=== PATIENT | female | born 1975 | race Two or more races ===

== ENCOUNTER 2016-04-15 09:06 | Inpatient (IN) | payer MEDICARE, OTHER ==
--- NOTE | ~2016-04-15 | CT2 ---
[facility] A Service of [facility] RADIOLOGY TEXT RESULTS PATIENT: GAGAN IGNACIO LOCATION: [facility] 85229-09 : [birth year] UNIT #: [id number] AGE: [address]: Samanta Coburn MD SEX: F ORDER DR: [id number] [facility] [address] [place], [place] [address] [id number] E MR#: [id number] #: [id number] NAME: GAGAN IGNACIO : 1975 SEX: F STUDY DATE/TIME: 04/15/2016 10:25 UNIT: SADIA ROOM: STUDY DESCRIPTION: CT Abd and Pelv W Cont Attending Physician: Justice Cooney M.D. Ordering Physician: Justice Cooney M.D. Primary Care Physician: Kyle Sheth M.D. MEDICAL IMAGING REPORT This report is preliminary unless electronic signature is present EXAM Abdomen and pelvis CT with contrast, 04/15/2016. INDICATION 41-year-old female complaining of lower abdominal pain, nausea, and vomiting since this morning. Headache since this morning. History of neck surgery, diabetes, and hypertension. TECHNIQUE Contrast-enhanced abdomen and pelvis CT was performed and compared with 03/21/2016. This CT exam was performed with one or more of the following radiation dose reduction techniques: automatic exposure control, adjustment of mA and/or kV according to patient size, and iterative reconstruction. FINDINGS CT ABDOMEN: Included lung bases are clear. There is no effusion or pericardial effusion. Aorta unremarkable. Spleen, adrenal glands, and pancreas are unremarkable along with the gallbladder. There is a subtle nonspecific area of enhancement in the dome of the right hepatic lobe measuring 9 mm. This probably represents a small vascular shunt or other benign lesion such as an area of focal nodular hyperplasia or small flash fill hemangioma. If clinically desired or warranted, definitive characterization could be pursued with multiphase imaging with and without contrast utilizing CT or MRI. Kidneys demonstrate tiny nonobstructing stones bilaterally. No hydronephrosis. CT PELVIS: Bladder unremarkable. There is heterogeneity of the uterus, probably related to the patient's menstrual cycle. No drainable fluid collection in the pelvis. Incidental dominant follicle in the right ovary measures 1.9 cm. Equivocal uterine fibroid to the left of midline STS. [facility] A Service of [facility] RADIOLOGY TEXT RESULTS PATIENT: GAGAN IGNACIO LOCATION: [facility] [address]-35 : [birth year] UNIT #: [id number] AGE: [address]: Samanta Coburn MD SEX: F ORDER DR: measures 2.6 cm. This could be better characterized with nonemergent outpatient ultrasound. No adnexal mass. The appendix is normal. There is a small anterior abdominal wall hernia containing fat and small bowel loops. There is fecalization of intestinal contents and a transition from decompressed small bowel to slightly dilated small bowel in the left midabdomen associated with the hernia along with a small amount of fluid in the adjacent posterior small bowel mesentery. The affected small bowel loops also demonstrate fluid distension. Imaging features are concerning for a partial or incomplete small bowel obstruction. This could less likely represent a localized small bowel enteritis. At this point, there is no pneumatosis or free air. There is evidence of prior hernia repair. Inguinal canals are unremarkable. No suspicious bone lesion. IMPRESSION 1. The patient has imaging features suggestive of an incomplete or partial small bowel obstruction or less likely small bowel enteritis. Mildly dilated small bowel with fecalization of intestinal contents associated with a small anterior abdominal wall hernia as described. At this point, there is no free air or pneumatosis. Most likely etiology is adhesions. 2. There is no drainable fluid collection in the abdomen or pelvis. Large bowel unremarkable. Appendix normal. 3. Probably benign enhancing lesion in the dome of the liver measures 9 mm. See discussion above. 4. Nonobstructing renal stones bilaterally. Dictated by... Ravin Johnson M.D. THIS IS AN ELECTRONICALLY VERIFIED REPORT Ravin Johnson M.D. at 04/15/2016 3:02 PM KONRAD/jagruti TD: 04/15/2016 11:42 JOB #: [id number] MEDICAL IMAGING REPORT COPY
--- NOTE | ~2016-04-15 | EKG ---
PATIENT: GAGAN IGNACIO UNIT #: [id number] Ventricular Rate: 103 BPM Atrial Rate: 103 BPM P-R Interval: 140 ms QRS Duration: 74 ms Q-T Interval: 324 ms QTC Calculation(Bezet): 424 ms P [place]: 61 degrees Calculated R [place]: 53 degrees Calculated T [place]: 61 degrees Diagnosis Line: Sinus tachycardia Diagnosis Line: Otherwise normal ECG Diagnosis Line: When compared with ECG of 24-MAR-2016 14:05, Diagnosis Line: No significant change was found Diagnosis Line: Confirmed by ALEXIA MURPHY MD ([id number]) on Diagnosis Line: 04/15/2016 10:56:46 PM INTERPRETING MD: LEYLA
--- NOTE | ~2016-04-15 | CO ---
Unit #: [id number] #: [id number] Patient: GAGAN IGNACIO [id number] [facility]. [place], [place] [address] [id number] I MR#: [id number] NAME: GAGAN IGNACIO ROOM: [facility] Age: 41 Sex: F Admission Date: 04/15/2016 : 1975 Attending Physician: Samanta Coburn M.D. Primary Care Physician: Kyle Shteh M.D. Consultation Date: 04/20/2016 CONSULTATION REPORT REASON FOR CONSULTATION Leukocytosis and fever. HISTORY OF PRESENT ILLNESS This is a 41-year-old female with history of diabetes, who is admitted to the hospital due to abdominal pain. The patient also had some nausea and vomiting without improvement and there is a concern for a small bowel obstruction. The patient was taken to the operating room where she had exploratory lap and lysis of adhesion. The patient then went back to the OR for a washout on 04/17/2016. It appears that she may have had some post respiratory failure, fever and leukocytosis but she is now on nasal cannula. Her fever has improved but she still complains of some abdominal pain. The patient was noted to have some leukocytosis yesterday as well and ID was asked to evaluate. PAST MEDICAL HISTORY Diabetes, chronic back pain, neck pain and migraines. PAST SURGICAL HISTORY Spine surgery x2, abdominal surgeries in the past. SOCIAL HISTORY The patient is originally from [place]. She lives with her family. She has no alcohol or tobacco abuse or drug use. ALLERGIES No known allergies. MEDICATIONS The patient has recently been changed to Zosyn. Mycamine and Flagyl were added last evening by myself. For other medications, please refer to patient's MAR. REVIEW OF SYSTEMS She denies any fevers. She reports feeling cold but no chills or sweats. She denies any heart palpitations. She does report some mild shortness of breath and she is on two liters of oxygen. She reports abdominal discomfort but passing gas. She denies any nonhealing wound. PHYSICAL EXAMINATION GENERAL APPEARANCE: This is a no apparent distress female who is resting in bed comfortably on three liters of oxygen. VITAL SIGNS: Temperature 98.1 with a T-max of 102.5 on April 17 at 8 p.m. Pulse 98. Blood pressure 127/82. Respiratory rate 18. Unit #: [id number] #: [id number] Patient: GAGAN IGNACIO HEENT: Her pupils are equal. NECK: Supple. CARDIOVASCULAR: S1, S2 with tachycardia. PULMONARY: Clear to auscultation bilaterally with no wheezes or rhonchi noted. ABDOMEN: Decreased bowel sounds. Incision with marcelina are in place with no drainage or erythema. EXTREMITIES: PICC line is in place in the upper arm. No evidence of erythema. DIAGNOSTIC STUDIES LABORATORY: BUN 10, creatinine 0.4, sodium 138, potassium 2.8, chloride 109, CO2 20, bilirubin 0.7, AST 10, ALT 10. CK total 24. Lactic acid 0.7. WBC count 13.6 and yesterday was 18.7, hemoglobin 11.4, hematocrit 35.5, platelets 451. Urinalysis is unremarkable. Microbiology data reveals negative blood cultures from both the and urine culture was negative as well. IMAGING: CT scan of the abdomen on the reveals exploratory lap postoperative changes with some stranding noted in the omentum where prior mesh was suspected of postoperative changes. Infection not excluded. There is no drainable fluid collection. There is no mechanical bowel obstruction, nonobstructing renal stones, bibasilar atelectasis. Hepatic steatosis. Last chest film showed minimal infiltrate or atelectasis. IMPRESSION This is a 41-year-old female status post exploratory lap with lysis of adhesions with re-op surgery with washout. Patient now with initial fever and leukocytosis suspected to be related to multiple OR procedures. CT scan is noted and there is no fluid collection found and most operatively a postoperative finding. Blood cultures are negative. There are no signs of suspicion of pneumonia or UTI at this time. At this time, we will continue Mycamine, Flagyl and Zosyn. We will follow the patient's WBC count and fever and may be able to deescalate antibiotics in the next 24 to 48 hours depending on patient progress. We will check a CBC in the a.m. and have the nursing staff call with any positive blood cultures. Thank you for allowing us to participate in the care of this patient. Further recommendations to follow depending the patient's clinical course. Dictated by... Timbo Canales.P.R.N. Teri Zaldivar TD: 04/20/2016 16:22 JOB #: [id number] CONSULTATION REPORT X X CONSULTATION REPORT
--- NOTE | ~2016-04-15 | CT71 ---
[facility] A Service of [facility] RADIOLOGY TEXT RESULTS PATIENT: GAGAN GINACIO LOCATION: [facility]ICCU2 CICCU2-08 : [birth year] UNIT #: [id number] AGE: [address]: Samanta Coburn MD SEX: F ORDER DR: [id number] [facility] [address] [facility]. [place], [place] [address] [id number] E MR#: [id number] Acc #: [id number] NAME: GAGAN IGNACIO : 1975 SEX: F STUDY DATE/TIME: 04/15/2016 10:23 UNIT: SADIA ROOM: STUDY DESCRIPTION: CT Head Wo Contrast Attending Physician: Justice Cooney M.D. Ordering Physician: Justice Cooney M.D. Primary Care Physician: Kyle Sheth M.D. MEDICAL IMAGING REPORT This report is preliminary unless electronic signature is present EXAM CT head without contrast 04/15/2016 HISTORY 41-year-old female with headache beginning this morning. COMPARISON None. TECHNIQUE Routine unenhanced axial images performed through the brain. FINDINGS No hemorrhage, acute infarction, mass lesion, or abnormal extraaxial fluid collection. No midline shift or focal mass effect. Ventricular system is normal in size and configuration. No acute bony abnormality. Partially imaged mucous retention cyst in the left maxillary sinus. Mild mucosal thickening left sphenoid sinus. Visualized mastoid air cells are clear. IMPRESSION 1. No acute intracranial abnormality. 2. Partially imaged mucous retention cyst in the left maxillary sinus. Minimal mucosal thickening left sphenoid sinus. Dictated by... Wayne Carmichael M.D. THIS IS AN ELECTRONICALLY VERIFIED REPORT Wayne Carmichael M.D. at 04/16/2016 4:43 PM HIGINIO/zak TD: 04/15/2016 11:22 JOB #: [id number] [facility] A Service of [facility] RADIOLOGY TEXT RESULTS PATIENT: GAGAN IGNACIO LOCATION: [address] : [birth year] UNIT #: [id number] AGE: [address]: Samanta Coburn MD SEX: F ORDER DR: MEDICAL IMAGING REPORT COPY
--- NOTE | ~2016-04-15 | CO ---
Unit #: [id number] #: [id number] Patient: GAGAN IGNACIO [id number] [place], [place] [address] [id number] I MR#: [id number] NAME: GAGAN IGNACIO ROOM: [facility] Age: 41 Sex: F Admission Date: 04/15/2016 : 1975 Attending Physician: Samanta Coburn M.D. Primary Care Physician: Kyle Sheth M.D. Consultation Date: 04/16/2016 CONSULTATION REPORT REASON FOR CONSULT ICU management. HISTORY OF PRESENT ILLNESS The patient is a very pleasant, 41-year-old female with past medical history significant for back pain, diabetes, migraine, who was admitted two days ago to the hospital with abdominal pain and her CT abdomen was consistent with small bowel obstruction with ventral incisional hernia. Patient underwent laparoscopy with ventral hernia repair and release of her small bowel obstruction. The patient was recovering on the floor where she was suddenly noted to be in respiratory distress with heart rate of 140 and low blood pressure. The patient stated that she was having chest pain mainly on inspiration with shortness of breath. Patient never smoked. She is not on oxygen at home. She has never been worked up for sleep apnea. PAST MEDICAL HISTORY 1. Migraine. 2. Diabetes type 2. 3. Chronic back pain. PAST SURGICAL HISTORY 1. Spine surgery. 2. Multiple abdominal surgeries. 3. Exploratory laparotomy. SOCIAL HISTORY Patient is and she lives with her family. No history of alcohol or drug abuse or smoking. FAMILY HISTORY Diabetes. ALLERGIES No known drug allergy. HOME MEDICATION 1. Invokana. 2. Neurontin. 3. Oxycodone. Unit #: [id number] #: [id number] Patient: GAGAN IGNACIO 4. Baclofen. 5. Imitrex. REVIEW OF SYSTEMS A 12-point review of systems was obtained and was negative except for what was mentioned in the HPI. PHYSICAL EXAMINATION GENERAL: The patient is not in acute distress. HEENT: Atraumatic, normocephalic, PERRLA, EOMI. CHEST: Decreased breath sounds bilaterally with fine rhonchi at the right bottom lung. HEART: Sinus tachycardia but no murmur, gallops or rubs. ABDOMEN: Soft. Tender to deep palpation. Bowel sounds weak. SKIN: No rashes. EXTREMITIES: No edema. APPLIED EXERCISE PHYSIOLOGIST: Awake, alert, oriented x3. No focal motor/sensory deficit. DIAGNOSTIC STUDIES LABORATORY: Lactic acid is 1, white blood count 16.9, hemoglobin 11.0. IMAGING: Tests are pending. ASSESSMENT 1. Acute hypoxic respiratory failure. 2. Sinus tachycardia. 3. Morbid obesity. 4. Rule out obstructive sleep apnea. 5. Small bowel obstruction. 6. Diabetes. PLAN 1. Patient is critical and she will be watched in the ICU very closely. 2. CT angiogram to rule out pulmonary embolus is needed in the light of hypoxia, tachycardia, chest pain and other risk factors. 3. Antibiotics were started by primary which will continue and reassess. 4. Continue IV fluid. 5. Sleep study as an outpatient. Dictated by... Tawana Gutierrez M.D. EA/marsha TD: 04/16/2016 20:47 JOB #: [id number] Unit #: [id number] #: [id number] Patient: GAGAN IGNACIO CONSULTATION REPORT X TAWANA KEEN MD X CONSULTATION REPORT
--- NOTE | ~2016-04-15 | DS ---
Unit #: [id number] #: [id number] Patient: GAGAN IGNACIO [id number] [address] [address] [id number] I MR#: [id number] NAME: GAGAN IGNACIO ROOM: 55 Age: 41 Sex: F Admission Date: 04/15/2016 : 1975 Discharge Date: 04/23/2016 Attending Physician: Samanta Coburn M.D. Primary Care Physician: Kyle Sheth M.D. DISCHARGE SUMMARY FINAL DIAGNOSES 1. Abdominal pain secondary to adhesions and abdominal wall hematoma status post first surgery performed by Dr. Granados on 04/15/16. Patient had diagnostic laparoscopy and extensive adhesiolysis done. The second procedure was performed on 04/17/2016 because there was a question of perforated viscus, but postoperative diagnosis was abdominal wall hematoma. Exploratory laparotomy was done, repair of incidental enterotomy of small bowel was done and washout of pneumoperitoneum. 2. Nausea and vomiting, which is resolved. 3. Leukocytosis, resolved. 4. Hyponatremia, resolved. 5. Acute hypoxic respiratory failure, resolved. 6. Sinus tachycardia, improved. 7. Diabetes mellitus type 2. 8. History of chronic back pain and neck pain. 9. History of migraine. DISCHARGE MEDICATIONS 1. Tylenol 325 mg q.4 p.r.n. 2. Januvia 100 mg daily. 3. Diflucan 200 mg p.o. daily. This will be as per ID. 4. Lopressor 25 mg q.6 hours. 5. Colace 100 mg b.i.d. 6. MiraLAX 17 grams b.i.d. 7. Metronidazole 500 mg p.o. q.8 until 04/29/2016. 8. Oxycodone continue home dose. 9. Omeprazole 40 mg daily. 10. Invokana continue home dose. 11. Augmentin 875 mg p.o. b.i.d. until 04/29/16. DIAGNOSTIC STUDIES LAB WORKUP ON DISCHARGE: Sodium 140, potassium 3.5, chloride 102, bicarb 30, BUN 6, creatinine 0.4. WBC 11.1, hemoglobin 11.2, hematocrit 34.7, platelet count 500. CONSULTATIONS DONE DURING HOSPITALIZATION 1. Dr. Burkett and Dr. Granados from [facility]. 2. Dr. Gutierrez from pulmonary services. 3. Dr. Meza from infectious disease. HOSPITAL COURSE Ms. Gagan Ignacio is a 41-year-old female who was admitted to the hospital with abdominal pain, nausea and vomiting. Dr. Burkett was Unit #: [id number] #: [id number] Patient: GAGAN IGNACIO consulted. There was a question of abdominal hernia. Dr. Granados performed surgery, and extensive adhesiolysis was done. Postsurgery the patient became very tachycardic and hypoxic. The patient was transferred to ICU. Repeat procedure was performed by Dr. Granados, and repair of incidental enterotomy of the small bowel was done. The patient is doing much better at this time, will be discharged home tomorrow morning after okay with [facility]. DISCHARGE INSTRUCTIONS 1. Caretenders to evaluate and treat, wound care and PT/OT. 2. Medications as per med/rec. 3. Follow up with primary care provider in 1 week. 4. CBC, BMP in 1 week. 5. Staple removal will be by Dr. Granados. Dictated by... Teri Talley/tha TD: 04/23/2016 13:38 JOB #: [id number] DISCHARGE SUMMARY X Samanta Coburn MD X DISCHARGE SUMMARY
--- NOTE | ~2016-04-15 | BMI ---
[facility] Nutrition Therapy DATE: 04/16/16 Patient: GAGAN IGNACIO Physician: VENKAT Address: [address] Room/Bed: [address] [place] [address], Zip: [place] [address] Admit Date: 04/15/16 Date of : [birth year] Height: 5 1 Weight: 231 105 HIGH BMI NOTE: DX: ABDOMINAL PAIN, NAUSEA, VOMITING ANTHROPOMETRICS: HT: 5'1", WT: 231# (105KG), BMI: 43.6 DIET: NPO RECOMMENDATIONS: ONCE DIET ADVANCEMENT IS MEDICALLY FEASIBLE, RECOMMEND A CC, HEART HEALTHY DIET TO PROMOTE A STEADY WEIGHT LOSS TOWARDS A HEALTY BMI OF 19-25 AND NORMAL GLUCOSE LEVELS. Respectfully, RASHEED REAVES, ARLET, LD [facility] cc: client file
--- NOTE | ~2016-04-15 | CR72 ---
[facility] A Service of [facility] RADIOLOGY TEXT RESULTS PATIENT: GAGAN IGNACIO LOCATION: [address] [id number] : [birth year] UNIT #: [id number] AGE: [address]: Samanta Coburn MD SEX: F ORDER DR: [id number] [facility] [address] [facility]. [place], [place] [address] [id number] I MR#: [id number] Acc #: [id number] NAME: GAGAN IGNACIO : 1975 SEX: F STUDY DATE/TIME: 04/18/2016 8:14 UNIT: [facility] ROOM: [facility] STUDY DESCRIPTION: CR Chest Single View Portable Attending Physician: Samanta Coburn M.D. Ordering Physician: Louise Garcia M.D. Primary Care Physician: Kyle Sheth M.D. MEDICAL IMAGING REPORT This report is preliminary unless electronic signature is present EXAM Portable chest INDICATION 41-year-old female with shortness of breath for 4 days. COMPARISON 04/17/2016 FINDINGS Mild improvement in bilateral interstitial opacities. Heart size stable. Stable NG tube. IMPRESSION Mild improvement in bilateral interstitial opacity. Dictated by... Richard Shields M.D. THIS IS AN ELECTRONICALLY VERIFIED REPORT Richard Shields M.D. at 04/18/2016 4:14 PM ASHLYN/jose luis TD: 04/18/2016 10:23 JOB #: [id number] MEDICAL IMAGING REPORT COPY
--- NOTE | ~2016-04-15 | CT16 ---
[facility] A Service of [facility] [place] RADIOLOGY TEXT RESULTS PATIENT: GAGAN INGACIO LOCATION: [facility] 552- : [birth year] UNIT #: [id number] AGE: [address]: Samanta Coburn MD SEX: F ORDER DR: [id number] [facility] [address] [facility] [place] [facility]. [place], [place] [address] [id number] I MR#: [id number] #: [id number] NAME: GAGAN IGNACIO : 1975 SEX: F STUDY DATE/TIME: 04/16/2016 20:18 [facility] RO[facility]: [facility] STUDY DESCRIPTION: CT Angio Chest for PE Attending Physician: Samanta Coburn M.D. Ordering Physician: Physician Non-Staff Primary Care Physician: Kyle Sheth M.D. MEDICAL IMAGING REPORT This report is preliminary unless electronic signature is present EXAM CT chest with IV contrast, PE protocol, 04/16/2016 COMPARISON March 21, 2016 INDICATIONS 41-year-old female with tachycardia, dyspnea and hypoxia today after abdominal surgery yesterday. TECHNIQUE Axial CT imaging of the chest was performed after administration of 80 mL Isovue-370 intravenously. Coronal MIPs as sagittal reformats were constructed. This CT exam was performed with one or more of the following radiation dose reduction techniques: automatic exposure control, adjustment of mA and/or kV according to patient size, and iterative reconstruction. FINDINGS Ehs Engineer topogram demonstrates gaseous distension of small bowel and colon, favoring a postoperative ileus. Subcutaneous gas is seen along the anterior abdominal wall bilaterally in the upper abdomen and along the right inferolateral chest wall/upper abdominal wall. Layering hyperdense material is seen within the gallbladder lumen, possibly reflecting vicarious excretion of contrast from CT abdomen and pelvis performed April 15, 2016. Trace amount of free air is seen anterior to the liver and in the left upper quadrant of the abdomen non dependently, likely an expected postoperative finding. There is a small amount of free fluid in the left upper quadrant of the abdomen, also likely an expected postoperative finding. There is a very small low-density lesion in the superior pole of the right kidney most in keeping with a benign cyst, measuring up to 5 mm. This has internal Hounsfield units of 13 on STS. [facility] A Service of [facility] [place] RADIOLOGY TEXT RESULTS PATIENT: GAGAN IGNACIO LOCATION: [facility]5 552-01 : [birth year] UNIT #: [id number] AGE: [address]: Samanta Coburn MD SEX: F ORDER DR: carey. Benign bone island in the left humeral head. Bridging anterior osteophytes of multiple levels of the thoracic spine suggestive of DISH. Anterior cervical fusion hardware as well as posterior cervical fusion hardware is noted, only seen in entirety on autocad topogram and not well evaluated. There are low lung volumes with enhancing wedge-shaped attenuation in both dependent lower lobes most consistent with atelectasis. There is top normal heart size. No pericardial effusion. When allowing for motion artifact the main pulmonary artery is likely normal caliber but appears prominent. Evaluation for pulmonary embolus is limited by phase of postcontrast imaging. There is no evidence of central pulmonary embolus and no definite peripheral pulmonary embolus is seen although again, evaluation is limited. Detailed evaluation of the lungs is limited by motion artifact. No pneumothorax or pleural effusion. IMPRESSION 1. Evaluation for pulmonary embolus is significantly limited by phase postcontrast imaging. Although there is no central pulmonary embolus more peripheral pulmonary embolus cannot entirely be excluded. Clinical correlation is recommended. If high persistent concern one could consider VQ scan. There is no evidence of right-sided heart strain. 2. Wedge-shaped dependent enhancing attenuation in both lower lobes consistent with atelectasis. No convincing evidence of pulmonary infarct or pneumonia. No pleural effusion. 3. Small to moderate amount of subcutaneous gas overlying the upper anterior abdominal wall and right lower lateral chest wall. 4. There is also trace amount free fluid in the left upper quadrant the abdomen with a small amount of pneumoperitoneum seen superiorly, likely expected postoperative findings. No evidence of associated abscess. 5. Tiny benign cyst of the right kidney. Dictated by... Tom Hull M.D. THIS IS AN ELECTRONICALLY VERIFIED REPORT Tom Hlul M.D. at 04/22/2016 5:43 PM IVONNE/matiled TD: 04/17/2016 00:47 JOB #: [id number] MEDICAL IMAGING REPORT COPY
--- NOTE | ~2016-04-15 | CO ---
Unit #: [id number] #: [id number] Patient: GAGAN IGNACIO [id number] [address] [address] [id number] I MR#: [id number] NAME: GAGAN IGNACIO ROOM: 228 Age: 41 Sex: F Admission Date: 04/15/2016 : 1975 Attending Physician: Samanta Cobunr M.D. Primary Care Physician: Kyle Sheth M.D. Consultation Date: 04/15/2016 CONSULTATION REPORT REASON FOR CONSULTATION 1. Small-bowel obstruction. 2. Recurrent ventral incisional hernia. Thank you very much for asking us to see Ms. Ignacio. HISTORY OF PRESENT ILLNESS She is a 41-year-old female. Her past surgical history is remarkable for multiple repairs of a ventral incisional hernia in the periumbilical area. One has been laparoscopic, but her most recent one was done open at [facility] by Dr. Uribe. She was doing well until yesterday when she developed abdominal pain in the area of her umbilicus as well as nausea and vomiting. She vomited 3 times. There was no hematemesis. Her last bowel movement was yesterday. She had no GI bleeding. No or pulmonary symptoms. Up to this point, her weight has been stable and her appetite has been good. She came to the emergency room for evaluation and on CT scan was found to have a what appeared to be a small bowel obstruction and recurrent ventral hernia. She presents at this time for further evaluation and treatment. PAST MEDICAL HISTORY Chronic back pain, chronic neck pain, diabetes, and migraine. PAST SURGICAL HISTORY History of spine surgery x2 and history of multiple ventral hernia repairs. SOCIAL HISTORY No tobacco or alcohol use. FAMILY HISTORY Positive for diabetes. ALLERGIES No known medical allergies. MEDICATIONS Invokana, Neurontin, oxycodone, baclofen, and Imitrex. REVIEW OF SYSTEMS Negative except for above. IMMUNIZATION STATUS Unknown. PHYSICAL EXAMINATION Unit #: [id number] #: [id number] Patient: GAGAN IGNACIO GENERAL: Well-developed, well-nourished female, in no apparent distress. VITAL SIGNS: Afebrile. Vital signs stable. NECK: Supple. No thyromegaly or adenopathy. BACK: No CVA or spinous tenderness. ABDOMEN: Soft, nondistended, tender in the area just above the umbilicus. There is a palpable hernia present, which appears to be incarcerated. There is no erythema or induration. The patient has no rebound or peritoneal signs. No masses palpable other than the hernia. EXTREMITIES: No calf tenderness. DIAGNOSTIC STUDIES LABORATORY RESULTS: White count is 11.9, hemoglobin 14.4, hematocrit 45.1. Her CMP was normal except for a glucose of 200. Urinalysis was negative nitrites, negative leukocyte esterase. IMAGING STUDIES: CT scan of the head without contrast was performed due to her headache with no intracranial abnormalities. CT scan of the abdomen and pelvis showed an incomplete or partial small bowel obstruction with an anterior abdominal wall hernia. IMPRESSION A 41-year-old female with a recurrent ventral incisional hernia. There was a loop of bowel present with fecalization. We feel that the patient on palpation is tender in the area of the hernia. We feel the patient should undergo diagnostic laparoscopy and possible laparoscopic ventral hernia repair with release of small bowel obstruction, possible exploratory laparotomy with open repair. All the risks and benefits of the procedure have been fully explained to the patient in detail including the risk of bleeding, infection, open procedure, recurrence, additional surgery, and other risks. She understands completely and requests we proceed. Dr. Granados will be performing the procedure as he has significant expertise in this type of procedure. All this has been fully discussed with Dr. Granados and a CT scan has been reviewed. He will evaluate the patient all as well. Dictated by... Teri Hong/viv TD: 04/15/2016 22:32 JOB #: [id number] [facility] CONSULTATION REPORT X Dante Burkett MD X CONSULTATION REPORT
--- NOTE | ~2016-04-15 | CR71 ---
[facility] A Service of [facility] RADIOLOGY TEXT RESULTS PATIENT: GAGAN IGNACIO LOCATION: [address] : [birth year] UNIT #: [id number] AGE: [address]: Samanta Coburn MD SEX: F ORDER DR: [id number] [facility] [address] [facility]. [place], [place] [address] [id number] I MR#: [id number] Acc #: [id number] NAME: GAGAN IGNACIO : 1975 SEX: F STUDY DATE/TIME: 04/17/2016 11:14 UNIT: [facility] ROOM: [facility] STUDY DESCRIPTION: CR Chest Single View Attending Physician: Samanta Coburn M.D. Ordering Physician: Aaron Granados M.D. Primary Care Physician: Kyle Sheth M.D. MEDICAL IMAGING REPORT This report is preliminary unless electronic signature is present EXAM Chest, portable 04/17/2016 11:14 hours HISTORY Patient complains of shortness of air postop exploratory laparotomy. History of hypertension, diabetes. COMPARISON Chest x-ray 04/16/2016. FINDINGS Portable upright chest demonstrates low lung volumes. There is a nasogastric tube with tip directed inferiorly in the midline epigastrium likely in the mid body of the stomach. The lung volumes are low with persistent right basilar atelectasis and perihilar vascular crowding. Given these low lung volumes it is difficult to exclude edema but I would favor that no edema is present. There is no pleural effusion. No definite free air is seen in the abdomen. IMPRESSION 1. Low lung volumes film with bibasilar densities likely atelectasis. Given the low lung volumes it is difficult to exclude edema but edema is not favored. There is no pleural effusion or pneumothorax. 2. New nasogastric tube tip is directed directly inferiorly in the epigastrium likely in the mid body of the stomach. No definite residual free air is seen in the abdomen. Dictated by... Patricia Manuel M.D. [facility] A Service of [facility] RADIOLOGY TEXT RESULTS PATIENT: GAGAN IGNACIO LOCATION: [address] : [birth year] UNIT #: [id number] AGE: [address]: Samanta Coburn MD SEX: F ORDER DR: THIS IS AN ELECTRONICALLY VERIFIED REPORT Patricia Manuel M.D. at 04/17/2016 2:33 PM LOS/donato TD: 04/17/2016 13:41 JOB #: [id number] MEDICAL IMAGING REPORT COPY
--- NOTE | ~2016-04-15 | OR ---
Unit #: [id number] #: [id number] Patient: GAGAN IGNACIO [id number] [address] [place], [place] [address] [id number] [place] MR#: [id number] NAME: GAGAN IGNACIO ROOM: [facility] Date of Procedure: 04/17/2016 Admission Date: 04/15/2016 Surgeon: Aaron Granados M.D. : 1975 Attending Physician: Samanta Coburn M.D. Primary Care Physician: Kyle Sheth M.D. OPERATIVE REPORT PREOPERATIVE DIAGNOSIS Possible perforated viscus. POSTOPERATIVE DIAGNOSIS Abdominal wall hematoma. PROCEDURES PERFORMED 1. Exploratory laparotomy. 2. Repair of incidental enterotomy of small bowel. 3. Washout of pneumoperitoneum. ANESTHESIA General endotracheal anesthesia. ESTIMATED BLOOD LOSS Minimal. IV FLUIDS 1.5 L crystalloid and 1 unit of packed red blood cells. INDICATIONS FOR PROCEDURE The patient is a 41-year-old lady, who is status post laparoscopic adhesiolysis secondary to what was thought to be a hernia and small-bowel obstruction. She presents with persistent tachycardia and intermittent bouts of hypotension with abdominal pain. Despite normal lactic acid, it was felt that the possibility of perforated bowel is entertained. I discussed in detail with the patient. She presents for exploratory laparotomy. DESCRIPTION OF PROCEDURE The patient was taken to the operating theater and placed in a supine position. General anesthesia was induced. She was prepped and draped. A midline incision was then made in the abdominal cavity. I entered through the mesh. Upon cutting the mesh with scissors, I did make 0.5 cm enterotomy. This was immediately identified and repaired with 2-0 silk sutures. I then explored the abdomen and found no evidence of a perforated viscus. There was old blood clot. This was all irrigated and washed out. I then ran the small bowel from the duodenal distal. I broke up any adhesions and did not see any area of small bowel obstruction. I did not see any evidence of perforation. NG tube was then placed and its position confirmed. I then irrigated with 4 L of normal saline. I placed the bowel back in anatomical position and then closed with interrupted Unit #: [id number] #: [id number] Patient: IGNACIO,GAGAN Prolene, which accomplished of mesh to mesh closure. I did not see any contamination. Therefore, I removed no mesh. I then closed the skin with marcelina. The patient tolerated the procedure well and sent to the recovery room in good condition. Dictated by... Teri Oseguera/viv TD: 04/18/2016 02:57 JOB #: [id number] OPERATIVE REPORT X Aaron Granados MD X PROCEDURE OPERATIVE NOTE
--- NOTE | ~2016-04-15 | CR72 ---
[facility] A Service of [facility] RADIOLOGY TEXT RESULTS PATIENT: GAGAN IGNACIO LOCATION: [place] [address] : [birth year] UNIT #: [id number] AGE: [address]: Samanta Coburn MD SEX: F ORDER DR: [id number] [facility] [address] [facility]. [place], [place] [address] [id number] I MR#: [id number] Acc #: [id number] NAME: GAGAN IGNACIO : 1975 SEX: F STUDY DATE/TIME: 04/19/2016 8:29 UNIT: [facility] ROOM: [facility] STUDY DESCRIPTION: CR Chest Single View Portable Attending Physician: Samanta Coburn M.D. Ordering Physician: Chris Gutierrez M.D. Primary Care Physician: Kyle Sheth M.D. MEDICAL IMAGING REPORT This report is preliminary unless electronic signature is present EXAM Portable chest 04/19/2016 at 04:07. INDICATIONS Pneumonia, chest pain, fever for the last 4 days. TECHNIQUE AP portable chest. COMPARISON Compared with 04/18/2016. FINDINGS Cardiomegaly is stable. Minimal residual infiltrate or atelectasis noted in both bases. There may be trace amount of pleural fluid on both sides of the chest. No pneumothorax. NG tube in the stomach. Dictated by... Oscar Burt Jr., M.D. THIS IS AN ELECTRONICALLY VERIFIED REPORT Oscar Burt Jr., M.D. at 04/22/2016 7:21 AM HEATHER/ilir TD: 04/19/2016 08:41 JOB #: [id number] MEDICAL IMAGING REPORT COPY
--- NOTE | ~2016-04-15 | EKG ---
PATIENT: GAGAN IGNACIO UNIT #: [id number] Ventricular Rate: 128 BPM Atrial Rate: 128 BPM P-R Interval: 144 ms QRS Duration: 82 ms Q-T Interval: 288 ms QTC Calculation(Bezet): 420 ms P [place]: 60 degrees Calculated R [place]: 39 degrees Calculated T [place]: 5 degrees Diagnosis Line: Sinus tachycardia Diagnosis Line: Otherwise normal ECG Diagnosis Line: When compared with ECG of 16-APR-2016 14:56, Diagnosis Line: (unconfirmed) Diagnosis Line: Minimal criteria for Inferior infarct are no Diagnosis Line: longer Present Diagnosis Line: Confirmed by RAFFY MCDONALD MD ([id number]) on 04/17/2016 Diagnosis Line: 6:26:02 PM INTERPRETING MD: TAMARA CHRIS
--- NOTE | ~2016-04-15 | HP ---
Unit #: [id number] #: [id number] Patient: GAGAN DEE [id number] [address] [place], [place] [address] [id number] I MR#: [id number] NAME: GAGAN DEE ROOM: 65939 Age: 41 Sex: F Admission Date: 04/15/2016 : 1975 Attending Physician: Samanta Coburn M.D. Primary Care Physician: Kyle Sheth M.D. HISTORY AND PHYSICAL CHIEF COMPLAINT Nausea, vomiting and abdominal pain. HISTORY OF PRESENTING ILLNESS Ms. Dee is a 41-year-old female who has a history of chronic back pain, chronic neck pains, diabetes mellitus type 2, chronic migraine. The patient was admitted last month for same kind of issues. She was seen by set up inspector on the last admission for tachycardia. Workup was negative. The patient's acute coronary syndrome was ruled out. The patient came back this time because of abdominal pain. According to patient, until yesterday, she was doing okay and then suddenly she started having abdominal pain. She started having nausea and vomited three times. Abdominal pain was not getting better so she came to ER and is being admitted for possible small bowel obstruction. The patient is still very nauseous, still having abdominal pain. No complaint of chest pain. No complaint of palpitations. No shortness of breath. She does not have any dizziness or syncopal episode. She is complaining of headache but then she has a history of chronic migraine and chronic back pain. She does not think she had any fever but she has been complaining of chills. Blood cultures were done last time which were negative. Urinalysis has been done in ER which shows hematuria almost likely secondary to (1) . PAST MEDICAL HISTORY 1. Chronic back pain. 2. Chronic neck pain. 3. Diabetes mellitus type 2. 4. History of migraine. PAST SURGICAL HISTORY 1. History of spine surgeries x2. 2. History of abdominal surgeries in [facility]. SOCIAL HISTORY The patient is originally from [place]. She lives with her son. No history of smoking, alcohol or drug abuse. FAMILY HISTORY Negative for coronary artery disease. Family history is positive for diabetes. ALLERGIES No known drug allergies. Unit #: [id number] #: [id number] Patient: GAGAN DEE HOME MEDICATIONS 1. Invokana. 2. Neurontin. 3. Oxycodone. 4. Baclofen. 5. Imitrex. REVIEW OF SYSTEMS As per history of presenting illness. PHYSICAL EXAMINATION GENERAL APPEARANCE: The patient is lying in bed, seems to be in mild distress secondary to pain. No respiratory distress. VITAL SIGNS: Blood pressure 113/79. Respiratory rate 20. Pulse 82. Temperature 98.1. Oxygen saturation 97%. HEENT: Head is normocephalic. Eye movements are normal. NECK: Supple. CHEST: Fair air entry. No additional sounds. CARDIOVASCULAR: S1, S2 positive. Regular rhythm. Tachycardia. ABDOMEN: Tender, generalized, all over. Bowel sounds are positive in the abdomen all over all the quadrants. EXTREMITIES: Negative edema. CENTRAL NERVOUS SYSTEM: Awake, alert, oriented x3. No focal neurological deficit. DIAGNOSTIC STUDIES LABORATORY: WBC 11.9, hemoglobin 14.4, hematocrit 45.1, platelet count 502. Troponin less than 0.05. Sodium 132, potassium 3.9, chloride 102, BUN 10, creatinine 0.4. Liver enzymes are stable. Lipase 19. Urinalysis shows hematuria. ABG is stable. IMAGING: CT scan of the head without contrast was done because of headache. No acute intracranial abnormalities. CT scan of the abdomen and pelvis was done which was suggestive of incomplete or partial small bowel obstruction and possible anterior abdominal wall hernia. ASSESSMENT The patient is being admitted to the med/surg unit with: 1. Abdominal pain. 2. Nausea and vomiting. 3. Possible partial small bowel obstruction. 4. Small abdominal hernia. 5. Leukocytosis. 6. Hyponatremia. 7. Diabetes mellitus type 2. 8. Headache with a history of chronic migraine. 9. Chronic back pain and chronic neck pain. PLAN Admit to med/surg. LSA has been consulted. IV fluids are being started. IV Protonix 40 mg daily is being started. Home medications have been reviewed. The patient is made n.p.o. at this time. IV Zofran p.r.n. for vomiting and IV Toradol p.r.n. for pain. Accu-Chek q.a.c. and h.s. with insulin sliding scale is being started. SCDs bilateral. Plan of care has been discussed with patient and patient's son at length. Dictated by Unit #: [id number] #: [id number] Patient: GAGAN DEE M.D. KN/bd TD: 04/15/2016 13:33 JOB #: [id number] HISTORY AND PHYSICAL X Samanta Coburn MD X HISTORY AND PHYSICAL
--- NOTE | ~2016-04-15 | EKG ---
PATIENT: GAGAN IGNACIO UNIT #: [id number] Ventricular Rate: 147 BPM Atrial Rate: 147 BPM P-R Interval: 140 ms QRS Duration: 72 ms Q-T Interval: 240 ms QTC Calculation(Bezet): 375 ms P [place]: 68 degrees Calculated R [place]: 52 degrees Calculated T [place]: 40 degrees Diagnosis Line: Sinus tachycardia Diagnosis Line: Nonspecific T wave abnormality Diagnosis Line: Abnormal ECG Diagnosis Line: When compared with ECG of 15-APR-2016 09:07, Diagnosis Line: Nonspecific T wave abnormality now evident in Diagnosis Line: Inferior leads Diagnosis Line: Nonspecific T wave abnormality now evident in Diagnosis Line: Anterolateral leads Diagnosis Line: Confirmed by RAFFY MCDONALD MD ([id number]) on 04/17/2016 Diagnosis Line: 6:05:06 PM INTERPRETING MD: TAMARA CHRIS
--- NOTE | ~2016-04-15 | CT4 ---
[facility] A Service of [facility] RADIOLOGY TEXT RESULTS PATIENT: GAGAN IGNACIO LOCATION: [facility] 552-01 : [birth year] UNIT #: [id number] AGE: [address]: Samanta Coburn MD SEX: F ORDER DR: [id number] [facility] [address] [facility]. [place], [place] [address] [id number] I MR#: [id number] Acc #: [id number] NAME: GAGAN IGNACIO : 1975 SEX: F STUDY DATE/TIME: 04/19/2016 22:22 [facility] ROOM: [facility] STUDY DESCRIPTION: CT Abd and Pelv Wo Cont Attending Physician: Samanta Coburn M.D. Ordering Physician: Raheem Prescott M.D. Primary Care Physician: Kyle Sheth M.D. MEDICAL IMAGING REPORT This report is preliminary unless electronic signature is present EXAM CT of the abdomen and pelvis without contrast, 04/19/16 HISTORY Leukocytosis with concern for intraabdominal abscess. Labs today showed white count of 19.8. TECHNIQUE This CT exam was performed with one or more of the following radiation dose reduction techniques: automatic exposure control, adjustment of mA and/or kV according to patient size, and iterative reconstruction. Axial CT images were obtained from the dome of the diaphragm through the symphysis pubis. No oral or intravenous contrast material was administered. FINDINGS Images through the lung bases demonstrate some bibasilar atelectasis. The patient is noted to have diffuse hepatic steatosis. High density material is seen within the gallbladder likely reflecting vicarious excretion of contrast material. The spleen appears unremarkable as are the stomach and proximal small bowel. Adrenal glands are normal in appearance as is the pancreas. This patient has nonobstructing stones within the kidneys. I do not see any evidence of hydronephrosis. I do not see any evidence of mechanical bowel obstruction. Extensive inflammatory stranding is seen within the omentum which is new when compared to the prior study. Exact significance is uncertain. I certainly do not see any discrete drainable abscess. Since the prior examination, this patient has undergone laparotomy. Potentially, all of the appearance may be related to postoperative change. Again, however, I am unable to identify a discrete drainable abscess. Trace amount of fluid is seen within the STS. [facility] A Service of [facility] RADIOLOGY TEXT RESULTS PATIENT: GAGAN IGNACIO LOCATION: [facility] : [birth year] UNIT #: [id number] AGE: [address]: Samanta Coburn MD SEX: F ORDER DR: pelvis. The patient has a catheter within the urinary bladder. Review of bony windows does not demonstrate any aggressive osseous abnormalities. IMPRESSION 1. Since the prior examination, this patient has undergone laparotomy. Extensive inflammatory stranding is identified within the omentum, and abutting the patient's prior ventral hernia repair with mesh. These may simply reflect postoperative changes. Certainly, possibility of some superimposed infection cannot be excluded. Of note, I do not see any discrete drainable fluid collections. There is no evidence of mechanical bowel obstruction. 2. Bilateral nonobstructing renal stones. 3. Bibasilar atelectasis. 4. Diffuse hepatic steatosis. 5. Please see the body of the report for any other additional incidental findings. Dictated by... Haritha Barton M.D. THIS IS AN ELECTRONICALLY VERIFIED REPORT Haritha Barton M.D. at 04/22/2016 1:20 PM AFF/ea TD: 04/20/2016 01:53 JOB #: [id number] MEDICAL IMAGING REPORT COPY
--- NOTE | ~2016-04-15 | CR72 ---
[facility] A Service of [facility] RADIOLOGY TEXT RESULTS PATIENT: GAGAN IGNACIO LOCATION: [address] : [birth year] UNIT #: [id number] AGE: [address]: Samanta Coburn MD SEX: F ORDER DR: [id number] [facility] [address] [facility]. [place], [place] [address] [id number] I MR#: [id number] Acc #: [id number] NAME: GAGAN IGNACIO : 1975 SEX: F STUDY DATE/TIME: 04/16/2016 12:08 UNIT: [facility] ROOM: [facility] STUDY DESCRIPTION: CR Chest Single View Portable Attending Physician: Samanta Coburn M.D. Ordering Physician: Samanta Coburn M.D. Primary Care Physician: Kyle Sheth M.D. MEDICAL IMAGING REPORT This report is preliminary unless electronic signature is present EXAM Portable chest 04/16 HISTORY Chest pain beginning today COMPARISON 03/21/2016 FINDINGS A portable view of the chest was obtained. There are postop changes in the cervical spine. The heart size and vascularity are normal. The left lung is clear. There is mild right base atelectasis or infiltrate. Bones are otherwise normal. IMPRESSION Low lung volumes with mild right base atelectasis or infiltrate, which is new from 03/21/2016. Dictated by... Girish Powell M.D. THIS IS AN ELECTRONICALLY VERIFIED REPORT Girish Powell M.D. at 04/16/2016 5:27 PM FEL/to TD: 04/16/2016 17:09 JOB #: [id number] MEDICAL IMAGING REPORT [facility] A Service [facility] RADIOLOGY TEXT RESULTS PATIENT: GAGAN IGNACIO LOCATION: [address] : [birth year] UNIT #: [id number] AGE: [address]: Samanta Coburn MD SEX: F ORDER DR: COPY
--- NOTE | ~2016-04-15 | EKG ---
PATIENT: GAGAN IGNACIO UNIT #: [id number] Ventricular Rate: 139 BPM Atrial Rate: 139 BPM P-R Interval: 140 ms QRS Duration: 74 ms Q-T Interval: 274 ms QTC Calculation(Bezet): 416 ms P [place]: 40 degrees Calculated R [place]: 2 degrees Calculated T [place]: 33 degrees Diagnosis Line: Sinus tachycardia Diagnosis Line: Cannot rule out Inferior infarct , age Diagnosis Line: undetermined Diagnosis Line: Abnormal ECG Diagnosis Line: When compared with ECG of 16-APR-2016 12:00, Diagnosis Line: (unconfirmed) Diagnosis Line: No significant change was found Diagnosis Line: Confirmed by RAFFY MCDONALD MD ([id number]) on 04/17/2016 Diagnosis Line: 6:09:21 PM INTERPRETING MD: TAMARA CHRIS
--- NOTE | ~2016-04-15 | OR ---
Unit #: [id number] #: [id number] Patient: GAGAN IGNACIO [id number] [address] [place], [place] [address] [id number] [place] MR#: [id number] NAME: GAGAN IGNACIO [facility]OM: [facility] Date of Procedure: 04/15/2016 Admission Date: 04/15/2016 Surgeon: Aaron Granados M.D. : 1975 Attending Physician: Samanta Coburn M.D. Primary Care Physician: Kyle Sheth M.D. OPERATIVE REPORT PREOPERATIVE DIAGNOSIS Small-bowel obstruction secondary to incarcerated ventral hernia. POSTOPERATIVE DIAGNOSIS Multiple adhesions to the anterior mesh without recurrent ventral hernia. PROCEDURES PERFORMED 1. Diagnostic laparoscopy. 2. Extensive adhesiolysis. CONTRACTS MANAGER None. ANESTHESIA General endotracheal anesthesia. ESTIMATED BLOOD LOSS 100 mL. IV FLUIDS 1.3 L crystalloid. INDICATIONS FOR PROCEDURE The patient is a 41-year-old lady, who presents with small-bowel obstruction, nausea, vomiting. CT scan shows an incarcerated ventral hernia with fecalization of the proximal small bowel. She presents for emergent exploratory laparoscopy with possible ventral hernia repair. DESCRIPTION OF PROCEDURE The patient was taken to the operating theater and placed in supine position. General anesthesia was induced. The abdomen was prepped and draped. A 5-mm Optiview was placed in left upper quadrant without difficulty. The abdomen was insufflated to 15 mmHg with CO2. Under direct vision, I placed a right upper quadrant 5 mm and another right upper quadrant 5 mm. General inspection of the abdomen revealed multiple adhesions. The small bowel was not significantly dilated. I began by taking down the adhesions, which took at least 1 hour. These were intimately adhered to the previously placed ventral hernia mesh and tacks. Any areas of hemorrhage were gained with hemostasis either with Bovie electrocautery or with a clipper. I was able to clear the entire anterior abdominal wall. I did not identify an incarcerated hernia. It appeared that the small bowel was kinked at the mesh and that the adhesiolysis Unit #: [id number] #: [id number] Patient: GAGAN IGNACIO would take care of the small bowel obstruction. I thus examined the small bowel as much as possible. I did not see any evidence of bowel injury. I did not see any transition point specifically. I then irrigated with normal saline and aspirated all fluids dry. Hemostasis was obtained. I removed the ports under direct vision and closed with 4-0 Vicryl. The patient tolerated the procedure well and sent to the recovery room in good condition. Dictated by... Teri Oseguera/viv TD: 04/16/2016 12:49 JOB #: [id number] OPERATIVE REPORT X Aaron Granados MD X PROCEDURE OPERATIVE NOTE
--- NOTE | ~2016-04-15 | XA166 ---
[facility] A Service of [facility] RADIOLOGY TEXT RESULTS PATIENT: GAGAN IGNACIO LOCATION: [facility] 552-01 : [birth year] UNIT #: [id number] AGE: [address]: Samanta Coburn MD SEX: F ORDER DR: [id number] [place] [address] [facility]. [place], [place] [address] [id number] I MR#: [id number] Acc #: [id number] NAME: GAGAN IGNACIO : 1975 SEX: F STUDY DATE/TIME: 04/19/2016 16:40 [facility] STUDY DESCRIPTION: XA PICC Line Placement WO Port Attending Physician: Samanta Coburn M.D. Ordering Physician: Samanta Coburn M.D. Primary Care Physician: Kyle Sheth M.D. MEDICAL IMAGING REPORT This report is preliminary unless electronic signature is present EXAM PICC line placement HISTORY 41-year-old female who needs IV access. PRE-PROCEDURE The procedure was explained to the patient and/or patient veterans employment representative including risks, benefits, potential complications and potential for alternative forms of treatment. Informed consent was obtained, and prior to initiating the procedure a formal timeout procedure was performed. PROCEDURE Using full standard sterile barrier technique, including caps, gowns, gloves, masks, as well as sterile skin preparation and standard sterile draping, the right arm was prepped and draped in the usual fashion, and real-time sterile ultrasound guidance was used to localize an arm vein and to confirm vessel patency. A hard copy ultrasound image was recorded. After local anesthesia with 1% Xylocaine, the vein was punctured using real-time sterile ultrasound guidance, and an 0.018 guidewire was advanced into the superior vena cava, using fluoroscopic guidance. A 5-Lao 37-cm double-lumen PICC was then measured and deployed with the tip positioned in the superior vena cava. The position of the line was documented with a radiographic image. The line was secured in place with an adhesive dressing and an antibiotic patch was applied. Total fluoro time was 0.2 minutes. 1 image was obtained. IMPRESSION Successful placement of a 5-Lao 37-cm double-lumen Power PICC via the arm under ultrasound and fluoroscopic guidance. The tip of the PICC is in good position in the superior vena cava. [facility] A Service of [facility] RADIOLOGY TEXT RESULTS PATIENT: GAGAN IGNACIO LOCATION: [facility] 552-01 : [birth year] UNIT #: [id number] AGE: [address]: Samanta Coburn MD SEX: F ORDER DR: Dictated by... Richard Shields M.D. THIS IS AN ELECTRONICALLY VERIFIED REPORT Richard Shields M.D. at 04/22/2016 11:20 AM ASHLYN/loulou TD: 04/19/2016 20:19 JOB #: [id number] MEDICAL IMAGING REPORT COPY
[2016-04-15 08:47] LABS: URINE SOURCE CLEAN CATCH
[2016-04-15 09:01] LABS: URINE APPEARANCE SL CLOUDY; URINE BILIRUBIN NEG (NEG); URINE BLOOD 4+ (NEG); URINE COLOR BROWN; URINE GLUCOSE 1000 MG/DL (NORM); URINE KETONE 3+ (NEG); URINE LEUKOCYTE ESTERASE NEG (NEG); URINE NITRATE NEG (NEG); URINE PROTEIN 1+ (NEG); URINE UROBILINOGEN NORM (NORM)
[~2016-04-15 09:06] MED LIST: AMARYL PO; CLARITIN10 M2 PO; GABAPENTIN600 MG PO; INVOKANA100 MG PO; JANUVIA PO; LIORESAL10 MG PO; NEURONTIN300 MG PO; NEURONTIN600 MG PO; OMEPRAZOLE40 M1 PO; OXYCODONE HCL15 MG PO; SUMATRIPTAN SU100 MG PO; TOPAMAX PO
[2016-04-15 09:14] LABS: BASOPHIL% 0.4 % (0-2.5); HEMATOCRIT 45.1 % (35.0-45.0); HEMOGLOBIN 14.4 gm/dL (12.0-16.0); LYMPHOCYTE# 1.4 X10e3 (1.0-3.5); LYMPHOCYTE% 11.6 % (17.0-45.0); MEAN CELL VOLUME 77.1 FL (83-96); MEAN CORPUSCULAR HEMOGLOBIN 24.7 PG (28-34); MEAN PLATELET VOLUME 8.5 FL (6.5-11.5); MONOCYTE# 0.5 X10e3 (0-1.0); MONOCYTE% 4.3 % (3.0-12.0); NEUTROPHIL# 9.9 X10e3 (1.5-7.1); NEUTROPHIL% 83.7 % (40-75); PLATELET COUNT 502 X10e3 (140-420); RED BLOOD COUNT 5.85 X10e (3.90-5.30); WHITE BLOOD COUNT 11.9 X10e3 (4.0-10.5)
[2016-04-15 09:20] LABS: DIFF IND NO
[2016-04-15 09:22] LABS: URBCS1 AUWI 200-300 /[HPF] (0-2); URINE SQUAMOUS EPITHELIAL CELL FEW /[HPF]; UWBCS1 AUWI 0-2 (0-5)
[2016-04-15 09:27] LABS: ALBUMIN SERUM 3.9 g/dL (3.5-5.0); ALKALINE PHOSPHATASE 86 U/L (32-92); ALT (SGPT) 20 U/L (10-40); AST (SGOT) 19 U/L (10-42); BILIRUBIN,TOTAL 0.7 mg/dL (0.2-2.0); BLOOD UREA NITROGEN 10 mg/dL (9-23); CALCIUM SERUM 8.9 mg/dL (8.4-10.2); CARBON DIOXIDE 22 mmol/L (22-31); CHLORIDE 102 mmol/L (100-111); CPK (CREATINE PHOSPHOKINASE) 32 IU/L (26-140); CREATININE SERUM 0.4 mg/dL (0.6-1.4); GLOM FILT RATE Estimated ABOVE60 mL/min (>60); GLUCOSE FASTING 207 mg/dL (70-110); LIPASE 19 U/L (22-51); POTASSIUM 3.9 mmol/L (3.5-5.1); PROTEIN TOTAL SERUM 8.4 g/dL (6.0-8.3); SODIUM 132 mmol/L (135-145)
[2016-04-15 09:32] LABS: POC - CKMB 1.2 ng/mL (0.0-7.9); POC - TROPONIN <0.05 ng/mL (<=0.05)
[2016-04-15 09:32] LABS: BILIRUBIN, DIRECT <0.1 mg/dL (0.0-0.2); BILIRUBIN,INDIRECT 0.6 mg/dL (0.0-0.9)
[2016-04-15 09:39] LABS: POC - CKMB 2.4 ng/mL (0.0-7.9); POC - TROPONIN <0.05 ng/mL (<=0.05)
[2016-04-15 09:42] LABS: CULTURE INDICATED? NO
[2016-04-15 11:02] LABS: ARTERIAL BLD GAS O2 SATURATION 95.5 % (90.0-100.0); ARTERIAL BLOOD GAS HCO3 23.2 mmol/L; ARTERIAL BLOOD GAS PO2 91.3 mmHg (80.0-100); ARTERIAL BLOOD GAS pH 7.394 (7.350-7.450)
[2016-04-15 11:03] LABS: ARTERIAL BLOOD GAS ALLEN TEST POS; ARTERIAL BLOOD GAS ART SITE RIGHT RADIAL; ARTERIAL DRAW? YES
[2016-04-15] MEDS ORDERED: NEURONTIN300 MG PO (12:07)
[2016-04-15] MEDS ORDERED: TOPAMAX PO (12:08)
[2016-04-15] MEDS ORDERED: JANUVIA PO (12:08)
[2016-04-15] MEDS ORDERED: OXYCODONE15 M1 PO (12:12)
[2016-04-15] MEDS ORDERED: HYDROXYZINE HCL10 MG PO (12:15)
[2016-04-15] MEDS ORDERED: INVOKANA300 MG PO (12:16)
[2016-04-15] MEDS ORDERED: OMEPRAZOLE40 M1 PO (19:18)
[2016-04-15] MEDS ORDERED: BACLOFEN10 MG PO (19:19)
[2016-04-15] MEDS ORDERED: CLARITIN10 M3 PO (19:20)
[2016-04-16 03:16] LABS: BASOPHIL% 0.2 % (0-2.5); HEMATOCRIT 34.9 % (35.0-45.0); LYMPHOCYTE# 0.9 X10e3 (1.0-3.5); LYMPHOCYTE% 5.2 % (17.0-45.0); MEAN CELL VOLUME 77.6 FL (83-96); MEAN CORPUSCULAR HEMOGLOBIN 24.5 PG (28-34); MEAN CORPUSCULAR HGB CONC 31.5 g/dL (30-36); MEAN PLATELET VOLUME 7.8 FL (6.5-11.5); MONOCYTE# 1.5 X10e3 (0-1.0); MONOCYTE% 8.9 % (3.0-12.0); NEUTROPHIL# 14.5 X10e3 (1.5-7.1); NEUTROPHIL% 85.7 % (40-75); PLATELET COUNT 375 X10e3 (140-420); RED BLOOD COUNT 4.51 X10e (3.90-5.30); RED CELL DISTRIBUTION WIDTH 15.6 % (11.0-15.5); WHITE BLOOD COUNT 16.9 X10e3 (4.0-10.5)
[2016-04-16 03:17] LABS: DIFF IND NO
[2016-04-16 03:37] LABS: MAGNESIUM 1.8 mg/dL (1.6-3.0); PHOSPHOROUS 2.4 mg/dL (2.5-4.6)
[2016-04-16 03:43] LABS: ALKALINE PHOSPHATASE 56 U/L (32-92); ALT (SGPT) 15 U/L (10-40); AST (SGOT) 15 U/L (10-42); BILIRUBIN,TOTAL 0.9 mg/dL (0.2-2.0); BLOOD UREA NITROGEN 7 mg/dL (9-23); CALCIUM SERUM 7.7 mg/dL (8.4-10.2); CARBON DIOXIDE 19 mmol/L (22-31); CHLORIDE 108 mmol/L (100-111); CREATININE SERUM 0.4 mg/dL (0.6-1.4); GLOM FILT RATE Estimated ABOVE60 mL/min (>60); GLUCOSE FASTING 196 mg/dL (70-110); PROTEIN TOTAL SERUM 6.2 g/dL (6.0-8.3); SODIUM 135 mmol/L (135-145)
[2016-04-16 12:28] LABS: ARTERIAL BLD GAS O2 SATURATION 88.7 % (90.0-100.0); ARTERIAL BLOOD GAS ALLEN TEST NORMAL; ARTERIAL BLOOD GAS ART SITE RIGHT RADIAL; ARTERIAL BLOOD GAS CARBOXY HB 1.7 %sat (0.0-9.0); ARTERIAL BLOOD GAS DELIVERY NASAL CANNULA; ARTERIAL BLOOD GAS HCO3 21.8 mmol/L; ARTERIAL BLOOD GAS MET HB 0.9 %sat (0.0-2.0); ARTERIAL BLOOD GAS PCO2 35.9 mmHg (35.0-45.0); ARTERIAL BLOOD GAS PO2 56.9 mmHg (80.0-100); ARTERIAL BLOOD GAS pH 7.393 (7.350-7.450); ARTERIAL DRAW? YES
[2016-04-17 05:55] LABS: HEMATOCRIT 31.2 % (35.0-45.0); HEMOGLOBIN 9.7 gm/dL (12.0-16.0); MEAN CELL VOLUME 77.6 FL (83-96); MEAN CORPUSCULAR HEMOGLOBIN 24.1 PG (28-34); MEAN CORPUSCULAR HGB CONC 31.1 g/dL (30-36); MEAN PLATELET VOLUME 7.3 FL (6.5-11.5); RED BLOOD COUNT 4.02 X10e (3.90-5.30); RED CELL DISTRIBUTION WIDTH 15.6 % (11.0-15.5); WHITE BLOOD COUNT 13.9 X10e3 (4.0-10.5)
[2016-04-17 07:12] LABS: ALBUMIN SERUM 2.3 g/dL (3.5-5.0); ALKALINE PHOSPHATASE 57 U/L (32-92); ALT (SGPT) 11 U/L (10-40); AST (SGOT) 10 U/L (10-42); CALCIUM SERUM 8.2 mg/dL (8.4-10.2); CARBON DIOXIDE 26 mmol/L (22-31); CHLORIDE 101 mmol/L (100-111); CREATININE SERUM 0.5 mg/dL (0.6-1.4); GLOM FILT RATE Estimated ABOVE60 mL/min (>60); GLUCOSE FASTING 135 mg/dL (70-110); POTASSIUM 3.6 mmol/L (3.5-5.1); PROTEIN TOTAL SERUM 5.3 g/dL (6.0-8.3); SODIUM 133 mmol/L (135-145)
[2016-04-17 07:21] LABS: BLOOD UREA NITROGEN <5 mg/dL (9-23)
[2016-04-17 08:41] LABS: ARTERIAL BLD GAS O2 SATURATION 95.7 % (90.0-100.0); ARTERIAL BLOOD GAS CARBOXY HB 1.1 %sat (0.0-9.0); ARTERIAL BLOOD GAS HCO3 21.4 mmol/L; ARTERIAL BLOOD GAS PCO2 37.1 mmHg (35.0-45.0); ARTERIAL BLOOD GAS pH 7.368 (7.350-7.450)
[2016-04-17 08:42] LABS: ARTERIAL BLOOD GAS ART SITE ARTERIAL LINE; ARTERIAL BLOOD GAS DELIVERY NASAL CANNULA; ARTERIAL DRAW? YES
[2016-04-17 18:28] LABS: BASOPHIL% 0.2 % (0-2.5); HEMATOCRIT 34.4 % (35.0-45.0); HEMOGLOBIN 10.9 gm/dL (12.0-16.0); LYMPHOCYTE# 0.5 X10e3 (1.0-3.5); LYMPHOCYTE% 2.6 % (17.0-45.0); MEAN CELL VOLUME 80.1 FL (83-96); MEAN CORPUSCULAR HEMOGLOBIN 25.3 PG (28-34); MEAN CORPUSCULAR HGB CONC 31.6 g/dL (30-36); MEAN PLATELET VOLUME 7.5 FL (6.5-11.5); MONOCYTE# 1.4 X10e3 (0-1.0); MONOCYTE% 7.1 % (3.0-12.0); NEUTROPHIL# 17.4 X10e3 (1.5-7.1); NEUTROPHIL% 90.1 % (40-75); PLATELET COUNT 314 X10e3 (140-420); RED CELL DISTRIBUTION WIDTH 16.1 % (11.0-15.5); WHITE BLOOD COUNT 19.3 X10e3 (4.0-10.5)
[2016-04-17 18:30] LABS: DIFF IND NO
[2016-04-18 00:29] LABS: HEMATOCRIT 39.3 % (35.0-45.0); HEMOGLOBIN 12.1 gm/dL (12.0-16.0)
[2016-04-18 05:49] LABS: BASOPHIL% 0.1 % (0-2.5); EOSINOPHIL% 0.1 % (0.0-7.0); HEMATOCRIT 37.8 % (35.0-45.0); HEMOGLOBIN 11.8 gm/dL (12.0-16.0); LYMPHOCYTE# 0.8 X10e3 (1.0-3.5); LYMPHOCYTE% 4.3 % (17.0-45.0); MEAN CELL VOLUME 79.8 FL (83-96); MEAN CORPUSCULAR HEMOGLOBIN 24.9 PG (28-34); MEAN CORPUSCULAR HGB CONC 31.2 g/dL (30-36); MONOCYTE# 1.6 X10e3 (0-1.0); MONOCYTE% 8.7 % (3.0-12.0); NEUTROPHIL# 16.2 X10e3 (1.5-7.1); NEUTROPHIL% 86.8 % (40-75); PLATELET COUNT 363 X10e3 (140-420); RED BLOOD COUNT 4.74 X10e (3.90-5.30); RED CELL DISTRIBUTION WIDTH 15.6 % (11.0-15.5); WHITE BLOOD COUNT 18.7 X10e3 (4.0-10.5)
[2016-04-18 05:52] LABS: DIFF IND YES
[2016-04-18 06:27] LABS: ANISOCYTOSIS SL; PLATELET ESTIMATE NORMAL (NORMAL)
[2016-04-18 06:29] LABS: MICROCYTOSIS SL
[2016-04-18 07:15] LABS: BLOOD UREA NITROGEN <5 mg/dL (9-23); CALCIUM SERUM 8.9 mg/dL (8.4-10.2); CARBON DIOXIDE 14 mmol/L (22-31); CHLORIDE 111 mmol/L (100-111); CREATININE SERUM 0.5 mg/dL (0.6-1.4); GLOM FILT RATE Estimated ABOVE60 mL/min (>60); GLUCOSE FASTING 153 mg/dL (70-110); SODIUM 139 mmol/L (135-145)
[2016-04-18 16:05] LABS: CHLAMYDIA TRACH Not Detected (Not Detected); N GONOR Not Detected (Not Detected)
[2016-04-19 05:28] LABS: BASOPHIL# 0.1 X10e3 (0-0.3); BASOPHIL% 0.4 % (0-2.5); EOSINOPHIL# 0.2 X10e3 (0-0.7); LYMPHOCYTE# 0.9 X10e3 (1.0-3.5); LYMPHOCYTE% 4.4 % (17.0-45.0); MEAN CELL VOLUME 80.6 FL (83-96); MEAN CORPUSCULAR HEMOGLOBIN 24.8 PG (28-34); MEAN CORPUSCULAR HGB CONC 30.8 g/dL (30-36); MEAN PLATELET VOLUME 7.8 FL (6.5-11.5); MONOCYTE# 1.4 X10e3 (0-1.0); MONOCYTE% 7.2 % (3.0-12.0); NEUTROPHIL# 17.2 X10e3 (1.5-7.1); PLATELET COUNT 471 X10e3 (140-420); RED BLOOD COUNT 4.83 X10e (3.90-5.30); RED CELL DISTRIBUTION WIDTH 16.2 % (11.0-15.5); WHITE BLOOD COUNT 19.8 X10e3 (4.0-10.5)
[2016-04-19 05:37] LABS: DIFF IND NO
[2016-04-19 07:20] LABS: ALBUMIN SERUM 2.5 g/dL (3.5-5.0); ALKALINE PHOSPHATASE 85 U/L (32-92); ALT (SGPT) 11 U/L (10-40); AST (SGOT) 9 U/L (10-42); BILIRUBIN,TOTAL 1.3 mg/dL (0.2-2.0); BLOOD UREA NITROGEN 7 mg/dL (9-23); CALCIUM SERUM 8.8 mg/dL (8.4-10.2); CARBON DIOXIDE 10 mmol/L (22-31); CHLORIDE 113 mmol/L (100-111); CREATININE SERUM 0.5 mg/dL (0.6-1.4); GLOM FILT RATE Estimated ABOVE60 mL/min (>60); GLUCOSE FASTING 124 mg/dL (70-110); POTASSIUM 3.9 mmol/L (3.5-5.1); PROTEIN TOTAL SERUM 6.3 g/dL (6.0-8.3); SODIUM 137 mmol/L (135-145)
[2016-04-19 10:28] LABS: ARTERIAL BLD GAS O2 SATURATION 97.3 % (90.0-100.0); ARTERIAL BLOOD GAS CARBOXY HB 0.8 %sat (0.0-9.0); ARTERIAL BLOOD GAS HCO3 7.4 mmol/L; ARTERIAL BLOOD GAS PCO2 20.9 mmHg (35.0-45.0)
[2016-04-19 10:29] LABS: ARTERIAL BLOOD GAS ART SITE RIGHT BRACHIAL; ARTERIAL BLOOD GAS DELIVERY VENTURI; ARTERIAL BLOOD GAS pH 7.155 (7.350-7.450); ARTERIAL DRAW? YES
[2016-04-20 05:21] LABS: BASOPHIL# 0.1 X10e3 (0-0.3); BASOPHIL% 0.4 % (0-2.5); DIFF IND NO; EOSINOPHIL# 0.5 X10e3 (0-0.7); EOSINOPHIL% 3.5 % (0.0-7.0); HEMATOCRIT 35.5 % (35.0-45.0); HEMOGLOBIN 11.4 gm/dL (12.0-16.0); LYMPHOCYTE# 0.8 X10e3 (1.0-3.5); MEAN CORPUSCULAR HEMOGLOBIN 25.1 PG (28-34); MEAN CORPUSCULAR HGB CONC 32.1 g/dL (30-36); MEAN PLATELET VOLUME 7.5 FL (6.5-11.5); MONOCYTE# 1.3 X10e3 (0-1.0); MONOCYTE% 9.5 % (3.0-12.0); NEUTROPHIL% 80.6 % (40-75); PLATELET COUNT 451 X10e3 (140-420); RED BLOOD COUNT 4.55 X10e (3.90-5.30); WHITE BLOOD COUNT 13.6 X10e3 (4.0-10.5)
[2016-04-20 06:11] LABS: ALBUMIN SERUM 2.3 g/dL (3.5-5.0); ALKALINE PHOSPHATASE 75 U/L (32-92); ALT (SGPT) 10 U/L (10-40); AMYLASE 32 U/L (0-46); AST (SGOT) 10 U/L (10-42); BILIRUBIN,TOTAL 0.7 mg/dL (0.2-2.0); BLOOD UREA NITROGEN 10 mg/dL (9-23); CALCIUM SERUM 8.6 mg/dL (8.4-10.2); CARBON DIOXIDE 20 mmol/L (22-31); CHLORIDE 109 mmol/L (100-111); CREATININE SERUM 0.4 mg/dL (0.6-1.4); GLOM FILT RATE Estimated ABOVE60 mL/min (>60); GLUCOSE FASTING 200 mg/dL (70-110); LIPASE 32 U/L (22-51); SODIUM 138 mmol/L (135-145)
[2016-04-20 06:31] LABS: POTASSIUM 2.8 mmol/L (3.5-5.1)
[2016-04-20 16:36] LABS: POTASSIUM 2.8 mmol/L (3.5-5.1)
[2016-04-21 01:11] LABS: BASOPHIL# 0.1 X10e3 (0-0.3); BASOPHIL% 0.7 % (0-2.5); EOSINOPHIL# 0.5 X10e3 (0-0.7); EOSINOPHIL% 4.4 % (0.0-7.0); HEMATOCRIT 34.1 % (35.0-45.0); HEMOGLOBIN 11.2 gm/dL (12.0-16.0); LYMPHOCYTE# 1.5 X10e3 (1.0-3.5); LYMPHOCYTE% 13.4 % (17.0-45.0); MEAN CELL VOLUME 77.5 FL (83-96); MEAN CORPUSCULAR HEMOGLOBIN 25.5 PG (28-34); MEAN CORPUSCULAR HGB CONC 32.9 g/dL (30-36); MEAN PLATELET VOLUME 7.4 FL (6.5-11.5); MONOCYTE% 9.1 % (3.0-12.0); NEUTROPHIL# 7.9 X10e3 (1.5-7.1); NEUTROPHIL% 72.4 % (40-75); PLATELET COUNT 460 X10e3 (140-420); RED BLOOD COUNT 4.41 X10e (3.90-5.30)
[2016-04-21 01:17] LABS: DIFF IND NO
[2016-04-21 01:45] LABS: BLOOD UREA NITROGEN 7 mg/dL (9-23); CALCIUM SERUM 8.4 mg/dL (8.4-10.2); CARBON DIOXIDE 27 mmol/L (22-31); CHLORIDE 106 mmol/L (100-111); CREATININE SERUM 0.4 mg/dL (0.6-1.4); GLOM FILT RATE Estimated ABOVE60 mL/min (>60); GLUCOSE FASTING 281 mg/dL (70-110); MAGNESIUM 1.9 mg/dL (1.6-3.0); PHOSPHOROUS 1.3 mg/dL (2.5-4.6); SODIUM 135 mmol/L (135-145)
[2016-04-21 01:46] LABS: POTASSIUM 2.9 mmol/L (3.5-5.1)
[2016-04-22 04:47] LABS: BASOPHIL# 0.1 X10e3 (0-0.3); BASOPHIL% 0.6 % (0-2.5); EOSINOPHIL# 0.2 X10e3 (0-0.7); EOSINOPHIL% 2.2 % (0.0-7.0); HEMATOCRIT 34.7 % (35.0-45.0); HEMOGLOBIN 11.2 gm/dL (12.0-16.0); LYMPHOCYTE# 1.9 X10e3 (1.0-3.5); LYMPHOCYTE% 17.3 % (17.0-45.0); MEAN CELL VOLUME 77.8 FL (83-96); MEAN CORPUSCULAR HEMOGLOBIN 25.2 PG (28-34); MEAN CORPUSCULAR HGB CONC 32.4 g/dL (30-36); MEAN PLATELET VOLUME 7.5 FL (6.5-11.5); MONOCYTE# 1.2 X10e3 (0-1.0); MONOCYTE% 10.4 % (3.0-12.0); NEUTROPHIL# 7.7 X10e3 (1.5-7.1); NEUTROPHIL% 69.5 % (40-75); PLATELET COUNT 500 X10e3 (140-420); RED BLOOD COUNT 4.46 X10e (3.90-5.30); RED CELL DISTRIBUTION WIDTH 16.1 % (11.0-15.5); WHITE BLOOD COUNT 11.1 X10e3 (4.0-10.5)
[2016-04-22 04:48] LABS: DIFF IND YES
[2016-04-22 05:03] LABS: BLOOD UREA NITROGEN 6 mg/dL (9-23); CALCIUM SERUM 8.6 mg/dL (8.4-10.2); CARBON DIOXIDE 30 mmol/L (22-31); CHLORIDE 102 mmol/L (100-111); CREATININE SERUM 0.4 mg/dL (0.6-1.4); GLOM FILT RATE Estimated ABOVE60 mL/min (>60); GLUCOSE FASTING 246 mg/dL (70-110); PHOSPHOROUS 3.7 mg/dL (2.5-4.6); POTASSIUM 3.5 mmol/L (3.5-5.1); SODIUM 140 mmol/L (135-145)
[2016-04-22 05:08] LABS: ANISOCYTOSIS MOD; MICROCYTOSIS SL; PLATELET ESTIMATE INCREASED (NORMAL); STOMATOCYTE PRESENT
[2016-04-23 09:39] LABS: BLOOD UREA NITROGEN 6 mg/dL (9-23); CALCIUM SERUM 8.7 mg/dL (8.4-10.2); CARBON DIOXIDE 31 mmol/L (22-31); CHLORIDE 101 mmol/L (100-111); CREATININE SERUM 0.4 mg/dL (0.6-1.4); GLOM FILT RATE Estimated ABOVE60 mL/min (>60); GLUCOSE FASTING 258 mg/dL (70-110); MAGNESIUM 1.9 mg/dL (1.6-3.0); POTASSIUM 3.9 mmol/L (3.5-5.1); SODIUM 139 mmol/L (135-145)
[2016-04-23] MEDS ORDERED: TYL325 PO (13:33)
[2016-04-23] MEDS ORDERED: AUGMENTIN875 M1 PO (13:37)
[2016-04-23] MEDS ORDERED: METOPROLOL TART25 MG PO (13:38)
[2016-04-23] MEDS ORDERED: DOK100 MG PO (13:39)
[2016-04-23] MEDS ORDERED: MIRALAX17 GM PO (13:40)
[2016-04-23] MEDS ORDERED: FLAGYL250 M1 PO (13:41)
[2016-04-23] MEDS ORDERED: DIFLUCAN200 MG PO (14:12)
[2016-04-23] MEDS ORDERED: PHENERGAN25 MG PO (14:18)
== END 2016-04-23 16:02 | disposition home health service (06) | DRG 329 ==
LOC: CED 09:06 → CEDOF 11:50 → C2A 19:09 → CICCU2 04-16 13:35 → C5B 04-21 20:45
PROVIDERS: Anesthesiology; Emergency Medicine; Hospitalist; Internal Medicine; Internal Medicine Pulmonary Disease; Nurse Practitioner; Physician Assistant Medical; Surgery
PROC: 0DNW4ZZ Release Peritoneum, Percutaneous Endoscopic Approach (ICD-10-PCS; principal; 2016-04-15 15:30)
PROC: B32TYZZ Computerized Tomography (CT Scan) of Left Pulmonary Artery using Other Contrast (ICD-10-PCS; 2016-04-16)
PROC: B32SYZZ Computerized Tomography (CT Scan) of Right Pulmonary Artery using Other Contrast (ICD-10-PCS; 2016-04-16)
PROC: 0DQ80ZZ Repair Small Intestine, Open Approach (ICD-10-PCS; 2016-04-17)
PROC: 30233N1 Transfusion of Nonautologous Red Blood Cells into Peripheral Vein, Percutaneous Approach (ICD-10-PCS; 2016-04-17)
PROC: 30233J1 Transfusion of Nonautologous Serum Albumin into Peripheral Vein, Percutaneous Approach (ICD-10-PCS; 2016-04-17)
PROC: 02HV33Z Insertion of Infusion Device into Superior Vena Cava, Percutaneous Approach (ICD-10-PCS; 2016-04-19)
PROC: B518YZA Fluoroscopy of Superior Vena Cava using Other Contrast, Guidance (ICD-10-PCS; 2016-04-19)
PROC: B548ZZA Ultrasonography of Superior Vena Cava, Guidance (ICD-10-PCS; 2016-04-19)
DX: K43.6 Other and unspecified ventral hernia with obstruction, without gangrene (principal); J96.01 Acute respiratory failure with hypoxia; I95.9 Hypotension, unspecified; E87.2 Acidosis; E87.1 Hypo-osmolality and hyponatremia; D62 Acute posthemorrhagic anemia; K91.871 Postprocedural hematoma of a digestive system organ or structure following other procedure; J98.11 Atelectasis; E11.9 Type 2 diabetes mellitus without complications; Y83.9 Surgical procedure, unspecified as the cause of abnormal reaction of the patient, or of later complication, without mention of misadventure at the time of the procedure; J45.909 Unspecified asthma, uncomplicated; G43.909 Migraine, unspecified, not intractable, without status migrainosus; R00.0 Tachycardia, unspecified; R07.89 Other chest pain; E87.6 Hypokalemia; E66.01 Morbid (severe) obesity due to excess calories; Z79.84 Long term (current) use of oral hypoglycemic drugs
CPT/HCPCS: 36415; 36600; 70450; 71010; 71275; 74176; 74177; 76937; 77001; 80048; 80053; 80076; 81003; 82010; 82150; 82308; 82550; 82553; 82803; 82947; 83605; 83690; 83735; 84100; 84132; 84443; 84484; 84703; 85014; 85018; 85025; 85027; 85730; 86850; 86900; 86901; 86923; 87040; 87086; 87491; 87591; 87808; 87905; 93005; 93308; 94660; 94760; 94761; 96361; 96374; 96375; 97110; 97116; 97163; 97166; 97530; 97535; 99285; C1751; C9113; G8978-GP; G8979-GP; G8987-GO; G8988-GO; J0131; J0330; J1170; J1335; J1644; J1815; J1885; J2248; J2250; J2270; J2370; J2405; J2543; J2710; J3010; J3475; J3490; J7060; P9016; P9045; Q9967